=== PATIENT | male | born 1985 | race Caucasian/White ===

== ENCOUNTER → 2016-11-11 | Outpatient (REF) | payer OTHER | LOC: M LAB REF 17:26 | PROVIDERS: ATTEND Physician Assistant | DX: J02.9 Acute pharyngitis, unspecified (principal) ==

== ENCOUNTER → 2024-07-31 | Outpatient (CLI) | payer OTHER | LOC: M PLALAB 11:01 | PROVIDERS: ATTEND Urology | DX: R39.14 Feeling of incomplete bladder emptying (principal) ==

== ENCOUNTER → 2025-04-25 | Outpatient (REF) | payer OTHER | LOC: M LAB REF 13:06 | PROVIDERS: ATTEND Physician Assistant Medical | DX: R68.82 Decreased libido (principal) ==